=== PATIENT | female | born 1945 ===

== ENCOUNTER 2021-11-29 07:55 | Emergency (ER) | payer MEDICARE, BC ==
[2021-11-29] MEDS ORDERED: EPINEPHrine 1 MG/ML AMP ONE (08:05)
[2021-11-29] MEDS ORDERED: diphenhydrAMINE 50 MG/ML VIAL ONE (08:11)
[2021-11-29] MEDS ORDERED: Famotidine/PF 20 mg/2ml Vial ONE (08:11)
[2021-11-29 08:36] LABS: Hemoglobin 13.1 g/dL (12.0-15.5); Mean Corpuscular Hemoglobin 33.4 pg (27.0-33.0); Mean Corpuscular Volume 107.9 fl (81.6-98.3); Mean Platelet Volume 11.3 fl (7.4-10.4); Platelet Count 238 10x3/uL (150-450); RBC Distribution Width 12.6 % (11.5-14.5); Red Blood Cell (RBC) Count 3.92 10x6/uL (3.90-5.03); White Blood Cell (WBC) Count 20.4 10x3/uL (3.5-10.5)
[2021-11-29 08:40] LABS: MDiff Complete? YES
[2021-11-29 08:43] LABS: ALT (SGPT) 15 U/L (8-55); AST (SGOT) 20 U/L (5-34); Albumin 4.2 g/dL (3.4-4.8); Alkaline Phosphatase 45 U/L (40-110); Anion Gap 18 mmol/L (10-20); BUN (Urea Nitrogen) 24 mg/dL (9.8-20.1); Bilirubin, Total 0.3 mg/dL (0.2-1.2); Calc. Creatinine Clearance 0 mL/min (70-130); Calcium 9.9 mg/dL (7.8-10.44); Carbon Dioxide 30 mmol/L (23-31); Chloride 97 mmol/L (98-107); Glucose 183 mg/dL (83-110); Potassium 4.8 mmol/L (3.5-5.1); Protein, Total 6.2 g/dL (5.8-8.1); Sodium 140 mmol/L (136-145)
[2021-11-29 08:54] LABS: Band 2 % (5-11); Eosinophils 3 % (0-10); Lymphocytes 25 % (21-51); Monocytes 3 % (0-10); Neutrophil 67 % (42-75)
[2021-11-29 08:56] LABS: Macrocytosis SLIGHT = 6-15 cells (100X) (0-5/hpf); Platelet Morphology Comment Appears Adequate
[2021-11-29 09:12] LABS: SARS-CoV-2 NAA Rapid Test Not Detected (NotDetected)
[2021-11-29] MEDS ORDERED: Iopamidol 300 61% 100 ML VIAL FS ONE (09:45)
[2021-11-29] MEDS ORDERED: Piperacillin/Tazobactam 4.5 GM VIAL ONE (10:31)
[2021-11-29 10:39] LABS: Actual Bicarbonate (HCO3v) 35 mEq/L (22-28); Base Excess 4.2 mEq/L (-2.0 to +3.0); Calcium, Ionized (venous) 1.26 mmol/L (1.16-1.32); Chloride (VBG) 97 mmol/L (98-106); Hemoglobin (Hb) 13.7 g/dL (11.7-16.1); Potassium (VBG) 4.23 mmol/L (3.70-5.30); Puncture Site Other Site; Sodium 136.2 mmol/L (133-146); pH (venous) 7.23 (7.32-7.43)
== END 2021-11-29 11:11 | disposition short-term general hospital (02) ==
LOC: CSHERS 07:55
DX: T79.7XXA Traumatic subcutaneous emphysema, initial encounter (principal); S27.0XXA Traumatic pneumothorax, initial encounter; S22.41XA Multiple fractures of ribs, right side, initial encounter for closed fracture; I10 Essential (primary) hypertension; Z79.899 Other long term (current) drug therapy; X58.XXXA Exposure to other specified factors, initial encounter
CPT/HCPCS: 70450; 71045; 71260; 72125; 74177; 80053; 82805; 83605; 84484; 85025; 93005; 94660 ×2; 94760; 96365; 96372; 96375; 99291; 99292; U0002; J0171; J1200; J2543; S0028